=== PATIENT | female | born 1975 | race Caucasian/White ===

== ENCOUNTER → 2021-07-02 | Outpatient (CLI) | payer OTHER ==
--- NOTE | 2021-07-02 11:29 | RAD ---
DATE: 07/02/2021 9:24 AM EXAM: MG DIGITAL BILAT DIAGNOSTIC MAMMO WITH ERMA. Targeted left breast ultrasound was also performed . HISTORY: 45-year-old female with new left palpable abnormality . Patient reports a interventional 10 0 pound weight loss over the course of last year. Patient reports history of bilateral breast reducti on at age 25. No personal history of breast cancer. Family history of breast cancer in 2 maternal aun ts one in her 40s in the other age 65. Also history of breast cancer in maternal grandmother, age uns pecified. COMPARISON: Mammogram from 07/02/2019 Bilateral CC and MLO views of the breasts were performed. Bilateral breast tomosynthesis was performe d in CC and MLO projections. This study was interpreted with the benefit of Computerized Aided Detection (CAD). FINDINGS: Mammogram: Breast Density: HETERO The breast parenchyma Is heterogeneously dense, which could reduce sensitivit y of mammography. Breast parenchyma level C Left breast: Partially obscured iso-hyperdense mass at the 6:00 position, posterior depth. Focal asym metry in the superior breast, middle depth. No suspicious architectural distortion or suspicious calc ifications. Focal asymmetry in the superior breast, middle depth partially dissipates on spot jerrell joya. Right breast: There is increased heterogeneity of the breast parenchyma with no dominant mass, fatmata ectural distortion, or suspicious calcifications. ULTRASOUND: Left breast ultrasound: Targeted ultrasound at the 6:00 position, 7 cm deep to the nipple reveals a h ypoechoic mass in a parallel orientation with circumscribed and gently lobulated margins with few int ernal avascular thin echogenic septations measuring up to 1 cm in maximal diameter. There is normal t hrough transmission of sound with no suspicious vascularity. This may represent a complicated cyst an d/or fibrocystic type changes. This may correspond with the mammographic finding, however this is not definite. Targeted ultrasound at the 12:00 position, 4.5 cm deep to the nipple reveals a area of heterogenous h ypoechoic tissue that measures up to 7.5 mm in maximal diameter. This area appears to be contiguous w ith surrounding fibroglandular tissue under real-time ultrasound. There is no suspicious vascularity with normal through transmission of sound. There is no definite mass sonographically. This is felt to correlate with the mammographic findings. IMPRESSION: 1. New suspicious hypoattenuating mass at the 6:00 position, 7 cm deep to the nipple. Further evaluat ion with aspiration and/or biopsy is recommended. 2. Probably benign area of fibrocystic-type change at the 12:00 position, 4.5 cm deep to the nipple. Further evaluation on 6 month follow-up mammogram and possible ultrasound is recommended. 3. Increased heterogenous appearance of the right breast, likely secondary to patient's intentional w eight loss. Six-month mammogram of the right breast to ensure interval stability is also recommended. BI-RADS CATEGORY: 4 SUSPICIOUS ABNORMALITY- BIOPSY SHOULD BE CONSIDERED RECOMMENDED FOLLOW-UP: Ultrasound-guided aspiration and/or biopsy of left breast mass at the 6:00 pos ition, 7 cm deep to the nipple. PQRS compliance statement: Patient information was entered into a reminder system with a target due d ate 12/30/2021 for the next mammogram. Mammography is a sensitive method for finding small breast cancers, but it does not detect them all a nd is not a substitute for careful clinical examination. A negative mammogram does not negate a clin ically suspicious finding and should not result in delay in biopsying a clinically suspicious abnorma lity. "Our facility is accredited by the [employer] Mammography Program." Electronically signed by: Joseph Flannery DO (07/02/2021 11:27 AM) [facility]
== END ==
LOC: MAMMO 09:18
PROVIDERS: ATTEND Nurse Practitioner
DX: N63.24 Unspecified lump in the left breast, lower inner quadrant (principal); R92.2 Inconclusive mammogram
CPT/HCPCS: 76641; 77066; G0279; 77062

== ENCOUNTER → 2021-07-23 | Outpatient (CLI) | payer OTHER ==
--- NOTE | 2021-07-23 09:52 | RAD ---
EXAM: Sonographic guided left breast biopsy; left breast biopsy clip placement; left breast postbiops y mammogram. HISTORY: 45-year-old female presents for sonographic guided biopsy of a small lesion within the poste rior 6:00 position demonstrated on a sonogram performed 07/02/2021. TECHNIQUE: The risks of the procedure discussed with the patient and written and verbal consent was o btained. A timeout was performed. Sonographic imaging of the left breast was performed and the lesion of concern at the 6:00 position was identified. This measures 9 mm. The skin overlying this lesion w as sterilely prepped, draped and infiltrated with 1 percent lidocaine. Multiple core cells were obtai willian through the lesion with sonographic guidance. A biopsy clip was advanced into the biopsy bed. Man ual compression was maintained until hemostasis was achieved. A sterile bandage was placed. A post bi opsy mammogram was obtained. A biopsy clip is not seen on the mammographic images likely due to posit ioning along the chest wall immediately anterior to the ribs. The clip is seen sonographically. The p atient tolerated the procedure without complication and was discharged in stable condition. IMPRESSION: Successful sonographic and biopsy of a lesion within the 6:00 position of the left breast . An addendum to this report will be submitted when pathology results are available. Electronically signed by: Irene Bishop MD (07/23/2021 9:50 AM) [id number]
--- NOTE | 2021-07-24 14:07 | PATHOLOGY ---
[facility] Accession Number: [id number] . 01 Material submitted: . breast - LEFT BREAST MASS 6 O'CLOCK 7CMFN 1CM. Modifiers: left . 02 Diagnosis: Fibroadipose tissue, left breast mass 6:00 7 cm from nipple needle biopsies: - Benign intramammary lymph node. See comment. (JPM:nette; 07/24/2021) QMS 07/24/2021 1000 Local . 02 Comment: Sections of the left breast mass 6:00 7 cm from nipple needle biopsies reveal fibroadipose breast tissue containing a benign intramammary lymph node. The lymph node shows mild sinus histiocytosis. There is no evidence of malignancy. (JPM:nette; 07/24/2021) . 02 Electronically signed: . Adalberto Doshi MD, Pathologist NPI- [id number] . 01 Gross description: . The specimen is received in formalin, labeled "[place], Della, left breast", however the requisition further designates the specimen as "left breast mass 6 o'clock 7 cm FN 1 cm" and the specimen consists of 4 fatty and focally hemorrhagic cylindrical needle core biopsies ranging in length from 0.5 cm to 1.5 cm and each averaging 0.2 cm diameter. The specimen is submitted in toto in A1-A3. The cold ischemic time is less than 60 seconds. The total time in formalin is 10 hours. (OHKAY OWINGEH; 07/23/2021) DKA/DKA 07/23/2021 1730 Local . 02 Pathologist provided ICD-10: N63.20 . 02 CPT . 889021 Specimen Comment: A courtesy copy of this report has been sent to [phone], [phone]- Specimen Comment: [id number], Specimen Comment: Report sent to , DR OWENS / DR MIGUEL Specimen Comment: A duplicate report has been generated due to demographic updates. Performed at: [facility] [address] [id number] MD Chandana Ralph MD Phone: [phone] Performed at: 02 [facility] [address] [place], [place] [id number] MD Adalberto Doshi MD Phone: [phone]
== END | disposition home or self-care (01) ==
LOC: US 08:30
PROVIDERS: ATTEND Surgery
DX: N63.23 Unspecified lump in the left breast, lower outer quadrant (principal); R92.8 Other abnormal and inconclusive findings on diagnostic imaging of breast
CPT/HCPCS: 19083; 77065; A4648; C1819

== ENCOUNTER 2021-08-28 08:20 | Day surgery (SDC) | payer OTHER ==
[~2021-08-28] VITALS: Ht 160 cm; Wt 72.0 kg
[~2021-08-28 08:20] MED LIST: BALANCED SALT IRRIG OPHTH SOLN 15 ML BOTTLE. ONE; CHONDROIT-SOD-HYALURONATE KIT. ONE; CHONDROITIN-SOD-HYALURONATE 0.5 ML DISP.SYRIN. ONE; CIPROFLOXACIN 0.3% OPHTH SOLUTION 5ML BOTTLE. OD ONE; CYCLOPENTOLATE 1% OPHTH SOLUTION 2ML BOTTLE. OD SCH; CYCLOPENTOLATE 2% OPHTH SOLUTION 2ML BOTTLE. OD SCH; HYDROmorphone 2 MG/ML INJ. IVP PRN; IV RINGERS,LACTATED 1000ML 1,000 ML IV SCH; LIDOCAINE 1%/PHENYLEPH 1.5% PF OPHTH 1 ML VIAL. ONE; LIDOCAINE 2% JELLY 6ML IN APPLICATOR. OD ONE; LIDOCAINE 2% JELLY 6ML IN APPLICATOR. ONE; MORPHINE SULFATE 2 MG/ML INJ. IVP PRN; MULT1CAP33 PO; NEO/POLYMYX/DEXAMETH OPHTH OINTMENT 3.5GM TUBE. ONE; PROCHLORPERAZINE 10 MG/2 ML VIAL. IVP PRN; fentaNYL PF VIAL 100 MCG/2 ML VIAL IVP PRN
[2021-08-28 08:54] VITALS: BP 154/72
[2021-08-28] MEDS: PROPARACAINE 0.5% OPHTH SOLUTION 15ML BOTTLE. OD ONE ×2 (08:59→09:12)
[2021-08-28] MEDS ORDERED: CALC-178 PO (08:59)
[2021-08-28] MEDS: PHENYLEPHRINE 10% OPHTH SOLUTION 5ML BOTTLE. OD SCH ×3 (09:00→09:10)
[2021-08-28] MEDS: CYCLOPENTOLATE 1% OPHTH SOLUTION 2ML BOTTLE. OD SCH ×3 (09:37→09:47)
[2021-08-28] MEDS ORDERED: MIDAZOLAM HCL/PF 2 MG/2 ML VIAL. ONE (10:18)
--- NOTE | 2021-08-28 11:28 | OP ---
DATE OF SURGERY: 08/28/2021 PREOPERATIVE DIAGNOSIS: Cataract of the right eye. PROCEDURE: Phacoemulsification with posterior chamber intraocular lens implantation, right eye. INDICATIONS: Painless progressive visual loss and visually significant cataract. SURGEON: Beth Sherman MD ANESTHESIA: Topical with monitored anesthesia care. DESCRIPTION OF PROCEDURE: The right eye was prepped with Betadine in the usual sterile fashion and draped. A paracentesis was performed followed by instillation of preservative-free phenylephrine admixed with balanced salt solution and lidocaine. A temporal clear corneal incision was made followed by instillation of Viscoat. A capsulorrhexis was performed, followed by hydrodissection. The phacoemulsification handpiece was used to remove the nucleus and the I/A handpiece removed the cortex. Provisc was injected in the anterior chamber and an Poncho model [id number] with a power of 23.0 diopters was placed into the capsular bag. Balanced salt solution was used to hydrate corneal wounds and the viscoelastic evacuated with the I/A handpiece. Once no leak was noted, Maxitrol was placed on the eye and the eye shielded and the patient sent to the recovery room uneventfully. HARRISON DR: Radha TID: [id number]
[2021-08-28 11:32] VITALS: BP 134/68
== END 2021-08-28 11:41 | disposition home or self-care (01) ==
LOC: SURG 08:20
PROVIDERS: ATTEND Ophthalmology
DX: H25.89 Other age-related cataract (principal); Z87.891 Personal history of nicotine dependence; Z79.899 Other long term (current) drug therapy; Z90.49 Acquired absence of other specified parts of digestive tract; Z98.51 Tubal ligation status; Z98.890 Other specified postprocedural states; Z72.89 Other problems related to lifestyle
CPT/HCPCS: 66984; A4930; J0171; J0690; J1580; J2250; J3490; V2632

== ENCOUNTER 2021-09-18 09:21 | Day surgery (SDC) | payer OTHER ==
[~2021-09-18] VITALS: Ht 160 cm; Wt 72.0 kg
[~2021-09-18 09:21] MED LIST changes: -BALANCED SALT IRRIG OPHTH SOLN 15 ML BOTTLE. ONE; +CALC-178 PO; -CHONDROIT-SOD-HYALURONATE KIT. ONE; -CHONDROITIN-SOD-HYALURONATE 0.5 ML DISP.SYRIN. ONE; -CIPROFLOXACIN 0.3% OPHTH SOLUTION 5ML BOTTLE. OD ONE; +CIPROFLOXACIN 0.3% OPHTH SOLUTION 5ML BOTTLE. OS ONE; -CYCLOPENTOLATE 1% OPHTH SOLUTION 2ML BOTTLE. OD SCH; +CYCLOPENTOLATE 1% OPHTH SOLUTION 2ML BOTTLE. OS SCH; -CYCLOPENTOLATE 2% OPHTH SOLUTION 2ML BOTTLE. OD SCH; -LIDOCAINE 1%/PHENYLEPH 1.5% PF OPHTH 1 ML VIAL. ONE; -LIDOCAINE 2% JELLY 6ML IN APPLICATOR. OD ONE; -LIDOCAINE 2% JELLY 6ML IN APPLICATOR. ONE; +LIDOCAINE 2% JELLY 6ML IN APPLICATOR. OS ONE; -NEO/POLYMYX/DEXAMETH OPHTH OINTMENT 3.5GM TUBE. ONE; +PHENYLEPHRINE 10% OPHTH SOLUTION 5ML BOTTLE. OS SCH; +PROPARACAINE 0.5% OPHTH SOLUTION 15ML BOTTLE. OS ONE
[2021-09-18 10:00] VITALS: BP 140/82
[2021-09-18] MEDS ORDERED: MIDAZOLAM HCL/PF 2 MG/2 ML VIAL. ONE (10:42)
[2021-09-18] MEDS ORDERED: LIDOCAINE 1%/PHENYLEPH 1.5% PF OPHTH 1 ML VIAL. ONE (10:55)
[2021-09-18] MEDS ORDERED: CHONDROIT-SOD-HYALURONATE KIT. ONE (10:55)
[2021-09-18] MEDS ORDERED: CHONDROITIN-SOD-HYALURONATE 0.5 ML DISP.SYRIN. ONE (10:55)
[2021-09-18] MEDS ORDERED: NEO/POLYMYX/DEXAMETH OPHTH OINTMENT 3.5GM TUBE. ONE (10:55)
--- NOTE | 2021-09-18 12:38 | OP ---
DATE OF SURGERY: 09/18/2021 PREOPERATIVE DIAGNOSIS: Cataract of the left eye. PROCEDURE: Phacoemulsification with posterior chamber intraocular lens implantation of the left eye. INDICATIONS: Painless progressive visual loss and visually significant cataract. DESCRIPTION OF PROCEDURE: The left eye was prepped with Betadine in the usual sterile fashion and draped. A paracentesis was performed followed by instillation of preservative-free phenylephrine admixed with balanced salt solution and lidocaine. A temporal clear corneal incision was made followed by instillation of Viscoat. A capsulorrhexis was performed, followed by hydro-expression of the nucleus. It was removed with the phacoemulsification handpiece and the I/A handpiece was used to remove the cortex. Provisc was injected in the anterior chamber and an Poncho model [id number] with a power of 23.5 diopters was placed into the capsular bag. Balanced salt solution was used to hydrate the corneal wounds and the viscoelastic evacuated with the I/A handpiece. Once no leak was noted, Maxitrol was placed on the eye and the eye shielded and the patient was sent to the recovery room uneventfully. CULLEN DR: Radha TID: [id number]
[2021-09-18 12:41] VITALS: BP 139/67
== END 2021-09-18 12:53 | disposition home or self-care (01) ==
LOC: SURG 09:21
PROVIDERS: ATTEND Ophthalmology
DX: H25.89 Other age-related cataract (principal); Z90.49 Acquired absence of other specified parts of digestive tract; Z98.51 Tubal ligation status; Z98.890 Other specified postprocedural states; Z87.891 Personal history of nicotine dependence; Z72.89 Other problems related to lifestyle
CPT/HCPCS: 66984; 81025; J0171; J0690; J1580; J2250; J3490; V2632